=== PATIENT | female | born 1960 | race Caucasian/White ===

== ENCOUNTER 2018-05-15 07:58 | Day surgery (SDC) | payer BC ==
[~2018-05-15 07:58] MED LIST: BUPIVACAINE HCL 0.75% INJ/PF (7.5 MG/1 ML) 10 ML SDV OS PRN; CHONDR SU A NA/HYALUR INTRAOC KIT (SURGICARE) ONE; EPINEPHRINE INJ/PF 1 MG/1 ML AMPULE ONE; KETOROLAC TROMETHAMINE 0.45% 4 DROP/0.4 ML DROPERETTE OS PRN; LIDOCAINE 1% INJ-PF (10 MG/ML) 30 ML SDV ONE; LIDOCAINE 4% INJ/PF (40 MG/ML) 5 ML AMPUL OS PRN
[2018-05-15] MEDS: TROPICAMIDE 1% OPH SOLN 3 ML OS PRN ×3 (08:27→08:56)
[2018-05-15] MEDS: CYCLOPENTOLATE 0.2%/PHENYLEPHRINE 1% OPH SOLN 2 ML OS PRN ×3 (08:27→08:56)
[2018-05-15] MEDS: BESIFLOXACIN HCL 0.6% OPH SUSP 5 ML BOTTLE OS PRN ×4 (08:28→09:51)
[2018-05-15] MEDS: TETRACAINE HCL 0.5% OPH SOLN 0.6 ML DROPERETTE OS PRN ×3 (08:29→09:15)
[2018-05-15] MEDS ORDERED: MIDAZOLAM 2 MG/2 ML INJ ONE (09:01)
[2018-05-15] MEDS ORDERED: FENTANYL CITRATE INJ/PF 100 MCG/2 ML AMPUL ONE (09:01)
[2018-05-15] MEDS: DORZOLAMIDE HCL 2%/TIMOLOL MALEAT 0.5% OPH SOLN 10 ML OS PRN ×2 (09:51)
--- NOTE | 2018-05-16 04:02 | [facility] OPERATIVE REPORT E ---
[facility] NAME: KI CALI AGE: 57Y DATE OF SURGERY: 05/15/2018 ROOM: [facility] Operative Report PREOPERATIVE DIAGNOSIS: CATARACT, LEFT EYE. POSTOPERATIVE DIAGNOSIS: CATARACT, LEFT EYE. PROCEDURE PERFORMED: PHACOEMULSIFICATION WITH TORIC INTRAOCULAR LENS IMPLANT LEFT EYE. SURGEON: PAULA SOLORIO MD ANESTHESIA: TOPICAL WITH MAC. INDICATIONS FOR SURGERY: Difficulty reading and driving. PROCEDURE: The patient was placed in the seated position and the 0- 270-, and 180-degree axis of the eye was marked using a *------* level. Prior to placing the lens implant, the 158-degree axis was marked on the eye using the previously marked sites as reference. The lens was centered at this axis. The patient was brought to the Operating Room and placed on the operative table. Following tetracaine drops, topical anesthesia was administered. This consisted of instrument wipe pledgets soaked in a solution of 4% Xylocaine mixed with 0.75% Marcaine in a 1:2 ratio. A 2 x 1 cm pledget was placed in the superior fornix. A 1 x 1 cm pledget was placed in the inferior fornix. The eye was patched shut for 5 minutes. The patch was removed. The eye was sterilely prepped and draped in the usual manner. Lid speculum was placed in the eye. The pledgets were removed. 4-0 black silk sutures were placed around the superior and the inferior rectus muscles to be used as traction. A conjunctival peritomy was made at the 10 o'clock position. Hemostasis was obtained with bipolar cautery. A posterior limbal groove was created using a crescent knife and dissected anteriorly towards the cornea. A sharp point blade was used to create a paracentesis site at the 2 o'clock position. A 2.4 mm keratome was used to enter the anterior chamber through the groove. Viscoelastic was injected into the anterior chamber. An anterior capsulotomy was performed using Utrata forceps in a capsulorrhexis fashion. Hydrodissection and hydrodelineation were performed. Phacoemulsification was performed in ojeacu-gwm-nvcalog technique. A total of 3.67 CDE seconds phaco time was used. Following this, the I/A unit was used to remove residual cortex. Viscoelastic was injected into the capsular bag. Intraocular lens model SN6AT4, 20.0 diopters, serial number [id number] was placed in the capsular bag. The I/A unit was used to remove residual viscoelastic. The wound was seen to be watertight under high and low pressure, and no sutures were placed. The intraocular lens was well centered. The pressure was adjusted in the eye to normal pressure. The 4-0 black silk sutures and lid speculum were removed. The eye was shielded after Besivance drops were placed. The patient tolerated the procedure well and was sent to the Recovery Room in good condition. DICTATING PHYSICIAN: PAULA SOLORIO M.D. DICTATING PHYSICIAN: PAULA SOLORIO M.D. [id number] PHY#: [id number] ID: [id number] JOB#: [id number] ACCT: [id number] cc:PAULA SOLORIO M.D. >
--- NOTE | 2018-05-16 04:07 | [facility] DISCHARGE SUMMARY E ---
[facility] Discharge Summary NAME: KI CALI AGE: 57Y ADMITTED: 05/15/2018 DISCHARGED: 05/15/2018 HOSPITAL COURSE: The patient is a 57-year-old lady who underwent uneventful cataract surgery with toric intraocular lens implant, left eye, on 05/15/18. She will be discharged to home. She is instructed to resume preoperative medications, take Tylenol as needed for discomfort, to keep her eye shielded, to use Pred Forte *------* at 3 p.m. and 8 p.m. To follow up in my office in 1 day. DICTATING PHYSICIAN: PAULA SOLORIO M.D. [id number] PHY#: [id number] ID: [id number] JOB#: [id number] ACCT: [id number] cc:PAULA SOLORIO M.D. >
== END 2018-05-15 10:30 | disposition home or self-care (01) ==
LOC: SC 07:58
PROVIDERS: ATTEND Ophthalmology
DX: H25.813 Combined forms of age-related cataract, bilateral (principal); E11.9 Type 2 diabetes mellitus without complications; I10 Essential (primary) hypertension; E78.00 Pure hypercholesterolemia, unspecified; M19.90 Unspecified osteoarthritis, unspecified site; Z79.82 Long term (current) use of aspirin; Z79.899 Other long term (current) drug therapy; Z79.4 Long term (current) use of insulin; Z96.41 Presence of insulin pump (external) (internal)
CPT/HCPCS: 66984; 82962; V2787; J2250; J3490 ×4; J0171; 142; J3010

== ENCOUNTER 2018-07-03 06:50 | Day surgery (SDC) | payer BC ==
[2018-07-03] MEDS ORDERED: MIDAZOLAM 2 MG/2 ML INJ ONE (07:03)
[2018-07-03] MEDS ORDERED: FENTANYL CITRATE INJ/PF 100 MCG/2 ML AMPUL ONE (07:03)
[2018-07-03] MEDS ORDERED: ONDANSETRON HCL INJ/PF 4 MG/2 ML SDV ONE (07:03)
[2018-07-03] MEDS ORDERED: CHONDR SU A NA/HYALUR INTRAOC KIT (SURGICARE) ONE (07:06)
[2018-07-03] MEDS ORDERED: EPINEPHRINE INJ/PF 1 MG/1 ML AMPULE ONE (07:06)
[2018-07-03] MEDS: TETRACAINE HCL 0.5% OPH SOLN 0.6 ML DROPERETTE OD PRN ×2 (07:12→07:40)
[2018-07-03] MEDS: TROPICAMIDE 1% OPH SOLN 3 ML OD PRN ×3 (07:13→07:38)
[2018-07-03] MEDS: CYCLOPENTOLATE 0.2%/PHENYLEPHRINE 1% OPH SOLN 2 ML OD PRN ×4 (07:13→07:38)
[2018-07-03] MEDS: BESIFLOXACIN HCL 0.6% OPH SUSP 5 ML BOTTLE OD PRN ×5 (07:14→08:27)
[2018-07-03] MEDS: KETOROLAC TROMETHAMINE 0.45% 4 DROP/0.4 ML DROPERETTE OD PRN ×2 (07:15→09:02)
[2018-07-03] MEDS: LIDOCAINE 1% INJ-PF (10 MG/ML) 30 ML SDV ONE ×2 (08:11→08:13)
[2018-07-03] MEDS: BUPIVACAINE HCL 0.75% INJ/PF (7.5 MG/1 ML) 10 ML SDV OD PRN ×2 (08:11→08:13)
[2018-07-03] MEDS: LIDOCAINE 4% INJ/PF (40 MG/ML) 5 ML AMPUL OD PRN ×2 (08:11→08:13)
[2018-07-03] MEDS: DORZOLAMIDE HCL 2%/TIMOLOL MALEAT 0.5% OPH SOLN 10 ML OD PRN ×3 (08:13→08:27)
--- NOTE | 2018-07-03 11:22 | [facility] OPERATIVE REPORT E ---
[facility] Operative Report NAME: KI CALI AGE: 57Y DATE OF SURGERY: ROOM: PREOPERATIVE DIAGNOSIS: Cataract, right eye. POSTOPERATIVE DIAGNOSIS: Cataract, right eye. PROCEDURE PERFORMED: Phacoemulsification with posterior chamber intraocular lens, right eye. SURGEON: PAULA SOLORIO MD ANESTHESIA: Topical with MAC. INDICATIONS FOR SURGERY: Difficulty with glare from headlights. PROCEDURE: Prior to the surgery the patient was in the seated position in the 0270 and 180 degree axis of the eye was marked using a marking level. The patient was brought to the Operating Room and placed on the operative table. Following tetracaine drops, topical anesthesia was administered. This consisted of instrument wipe pledgets soaked in a solution of 4% Xylocaine mixed with 0.75% Marcaine in a 1:2 ratio. A 2 x 1 cm pledget was placed in the superior fornix. A 1 x 1 cm pledget was placed in the inferior fornix. The eye was patched shut for 5 minutes. The patch was removed. The eye was sterilely prepped and draped in the usual manner. Lid speculum was placed in the eye. The pledgets were removed. 4-0 black silk sutures were placed around the superior and the inferior rectus muscles to be used as traction. A conjunctival peritomy was made at the 10 o'clock position. Hemostasis was obtained with bipolar cautery. A posterior limbal groove was created using a crescent knife and dissected anteriorly towards the cornea. A sharp point blade was used to create a paracentesis site at the 2 o'clock position. A 2.4 mm keratome was used to enter the anterior chamber through the groove. Viscoelastic was injected into the anterior chamber. An anterior capsulotomy was performed using Utrata forceps in a capsulorrhexis fashion. Hydrodissection and hydrodelineation were performed. Phacoemulsification was performed in nwyyhk-tcz-auhlwnd technique. Total phaco time 5.53 CDE seconds phaco time was used. Following this, the I/A unit was used to remove residual cortex. Viscoelastic was injected into the capsular bag. Intraocular lens model SN6AT4, 20.0 diopters, serial number [id number] was placed in the capsular bag. Prior to placing the lens implant the 11 degree axis was marked on the eye and the lens was centered at this axis.The I/A unit was used to remove residual viscoelastic. The wound was seen to be watertight under high and low pressure, and no sutures were placed. The intraocular lens was well centered. The pressure was adjusted in the eye to normal pressure. The 4-0 black silk sutures and lid speculum were removed. The eye was shielded after Besivance drops were placed. The patient tolerated the procedure well and was sent to the Recovery Room in good condition. DICTATING PHYSICIAN: PAULA SOLORIO M.D. [id number] PHY#: [id number] ID: [id number] JOB#: [id number] ACCT: [id number] cc:PAULA SOLORIO M.D. > MTDD
--- NOTE | 2018-07-03 11:47 | [facility] DISCHARGE SUMMARY E ---
[facility] Discharge Summary NAME: KI CALI AGE: 57Y ADMITTED: 07/03/2018 DISCHARGED: HOSPITAL COURSE: The patient is a 57-year-old lady who underwent uneventful cataract extraction with Toric intraocular lens implant, right eye on 07/03/2018. She was discharged to home. She was instructed to resume preoperative medications, take Tylenol as needed for discomfort, keep her eye shielded, to use Durezol, Prolensa, and Vigamox at 3 p.m. and 8 p.m. To follow up in my office in 1 day. DICTATING PHYSICIAN: PAULA SOLORIO M.D. [id number] PHY#: [id number] ID: [id number] JOB#: [id number] ACCT: [id number] cc:PAULA SOLORIO M.D. >
== END 2018-07-03 09:25 | disposition home or self-care (01) ==
LOC: SC 06:50 → MERGE 11:30
PROVIDERS: ATTEND Ophthalmology
DX: H25.811 Combined forms of age-related cataract, right eye (principal); Z96.1 Presence of intraocular lens; E10.3513 Type 1 diabetes mellitus with proliferative diabetic retinopathy with macular edema, bilateral; H04.123 Dry eye syndrome of bilateral lacrimal glands; I10 Essential (primary) hypertension; I34.0 Nonrheumatic mitral (valve) insufficiency; E11.9 Type 2 diabetes mellitus without complications; Z79.899 Other long term (current) drug therapy; Z79.4 Long term (current) use of insulin; Z96.41 Presence of insulin pump (external) (internal)
CPT/HCPCS: 66984; 82962; V2787; J2250; J3490 ×4; J0171; J3010; J2405; 142